=== PATIENT | female | born 1985 | race Caucasian/White ===

== ENCOUNTER 2016-07-19 12:10 | Outpatient (CLI) | payer OTHER | END 2016-07-19 12:11 | disposition home or self-care (01) | DX: G43.909 Migraine, unspecified, not intractable, without status migrainosus (principal) ==

== ENCOUNTER 2017-04-15 20:59 | Outpatient (CLI) | payer OTHER ==
--- NOTE | 2017-04-16 15:40 | Ultrasound Report ---
PLEASE VERIFY - CANNOT TELL IF ANY FURTHER INFO ON WORKSHEET FOR HERE & STUDY LAST SLIDE BLURRY FIRST TRIMESTER OB ULTRASOUND: 04/15/2017 CLINICAL INDICATION: Dating, viability. TECHNIQUE: Real-time scanning was performed with entry level account representative static images obtained. LAST MENSTRUAL PERIOD 02/28/2017 Clinical Age 6 weeks 4 days US Age 6 weeks 2 days EFW [place] -- EFW% Had[place] -- Heart Rate 120 bpm EDC 12/05/2017 US EDC 12/04/2017 BPD [place] -- HC [place] -- AC Hadlock -- FL [place] -- Presentation -- Placental Location -- Cervical Length -- Amniotic Fluid 11 mm FINDINGS: There is a single viable intrauterine gestation. heart rate is 120 BPM. By crown-rump length, the fetus dates 6 weeks 2 days (6 weeks 4 days by LMP). The gestational sac appears regular. There is a small perigestational hemorrhage present. The uterus is anteverted. The ovaries are unremarkable, with the right measuring 2.8 x 2.8 x 2.0 cm, and the left measuring 2.7 x 2.4 x 1.1 cm. No free fluid is present. IMPRESSION: SINGLE VIABLE INTRAUTERINE GESTATION, WITH SIZE IN KEEPING WITH LMP DATING. AN 11-MM PERIGESTATIONAL HEMORRHAGE. NORMAL OVARIES. MTDD
== END 2017-04-15 21:00 | disposition home or self-care (01) ==
LOC: DI 20:59
PROVIDERS: ATTEND Obstetrics & Gynecology
DX: O36.80X0 Pregnancy with inconclusive fetal viability, not applicable or unspecified (principal)
CPT/HCPCS: 36415; 76801; 86900; 86901

== ENCOUNTER 2017-04-18 17:34 | Outpatient (CLI) | payer OTHER | END 2017-04-18 17:35 | disposition home or self-care (01) | LOC: LAB 17:34 | PROVIDERS: ATTEND Obstetrics & Gynecology | DX: Z34.90 Encounter for supervision of normal pregnancy, unspecified, unspecified trimester (principal) | CPT/HCPCS: 36415; 84702 ==

== ENCOUNTER 2017-04-21 16:23 | Outpatient (CLI) | payer OTHER | END 2017-04-21 16:24 | disposition home or self-care (01) | LOC: LAB 16:23 | PROVIDERS: ATTEND Obstetrics & Gynecology | DX: Z34.90 Encounter for supervision of normal pregnancy, unspecified, unspecified trimester (principal) | CPT/HCPCS: 36415; 84702 ==